=== PATIENT | female | born 1960 ===

== ENCOUNTER 2017-08-30 11:17 | Observation (INO) | payer MEDICARE, MEDICAID ==
--- NOTE | 2017-08-30 13:38 | ED PDOC ---
HPI: Back Time Seen by Provider: 08/30/17 11:51 Chief Complaint (Nursing): Back Pain Chief Complaint (Provider): Right lower back pain x 16 days History Per: Patient History/Exam Limitations: no limitations Onset/Duration Of Symptoms: Days Current Symptoms Are (Timing): Still Present Full Body Front + Back: 1 - Pain 2 - Radiation of pain Quality Of Discomfort: Sharp Additional Complaint(s): 57 yo female with HTN and high cholesterol presents wtih 16 days of right lower back pain, sharp, radiating down the right leg and worse with movement. Pt denies fall or trauma. Pt states that she was seen by Dr. Cerna and given percocet. Pt was also referred to Dr. Hennessy. Pt states she saw Dr. Hennessy and was given Rx for MRI. Pt states she than called Dr. Cerna who was not available and the engineering secretary told her to come to the ER if pain was so severe. Pt states she is no longer taking percocet for pain because she "does not want to become an addict". Pt has Rx for MRI and states she does not want to leave Er without finding out what is wrong with her back. Past Medical History Reviewed: Historical Data, Nursing Documentation, Vital Signs Vital Signs: Last Vital Signs Temp 98.4 F 08/30/17 11:26 Pulse 72 08/30/17 11:26 Resp 20 08/30/17 11:26 BP 139/84 08/30/17 11:26 Pulse Ox 97 08/30/17 11:26 - Medical History PMH: HTN, Hypercholesterolemia - Surgical History Surgical History: No Surg Hx - Family History Family History: States: No Known Family Hx - Home Medications Home Medications: Ambulatory Orders Medication Instructions Recorded Losartan [Cozaar] 100 mg PO DAILY 08/30/17 Metoprolol Succinate XL [Toprol XL] 50 mg PO DAILY 08/30/17 QUEtiapine [SEROquel] 300 mg PO HS 08/30/17 carBAMazepine [Tegretol] 400 mg PO HS 08/30/17 clonazePAM [Klonopin] 1 mg PO HS 06/20/18 - Allergies Allergies/Adverse Reactions: Allergies Allergy/AdvReac Type Severity Reaction Status Date / Time iodine Allergy RASH Verified 08/30/17 11:51 Review of Systems ROS Statement: Except As Marked, All Systems Reviewed And Found Negative Constitutional: Negative for: Fever, Chills Gastrointestinal: Negative for: Nausea, Vomiting, Rectal Pain Genitourinary Female: Negative for: Dysuria, Frequency, Incontinence Musculoskeletal: Positive for: Back Pain Neurological: Negative for: Weakness Physical Exam - Reviewed Nursing Documentation Reviewed: Yes Vital Signs Reviewed: Yes - Physical Exam Appears: Positive for: Well, Non-toxic, No Acute Distress Head Exam: Positive for: ATRAUMATIC, NORMAL INSPECTION, NORMOCEPHALIC Skin: Positive for: Normal Color, Warm, DRY Eye Exam: Positive for: Normal appearance ENT: Positive for: Normal ENT Inspection Neck: Positive for: Normal, Painless ROM Cardiovascular/Chest: Positive for: Regular Rate, Rhythm Respiratory: Positive for: Normal Breath Sounds. Negative for: Accessory Muscle Use, Respiratory Distress Gastrointestinal/Abdominal: Positive for: Normal Exam, Soft. Negative for: Tenderness Back: Positive for: Normal Inspection, Vertebral Tenderness Extremity: Positive for: Normal ROM, Other (Pain with right leg raise ) Neurologic/Psych: Positive for: Alert, Oriented - Laboratory Results Result Diagrams: 08/30/17 19:20 08/30/17 19:20 - ECG O2 Sat by Pulse Oximetry: 97 Pulse Ox Interpretation: Normal Medical Decision Making Medical Decision Making: Discussed with Dr. Cerna who states he was unaware patient was going to the ER. Discussed with Dr. Hennessy who also states he did not know she was going to ER due to pain. Dr. Hennessy recommends MRI and to call him when results are back. Discussed MRI reports with Dr. Hennessy. Would like patient admitted under Dr. Dee Cerna and IV steroids. Basic labs ordered for admission. Discussed admission with Dr. Dee Cerna. Labs normal and urine normal. Disposition - Clinical Impression Clinical Impression: Intractable back pain - Patient ED Disposition Is Patient to be Admitted: Yes - Disposition Disposition Time: 19:10 Condition: STABLE
--- NOTE | 2017-08-30 14:18 | MRI ---
PROCEDURE: MR LUMBAR SPINE WITHOUT CONTRAST HISTORY: severe pain, unable to ambulate COMPARISON: None available. TECHNIQUE: Multiecho multiplanar sequences were performed through the lumbar spine without the use of intravenous contrast. FINDINGS: Normal lumbar lordosis. Vertebral body heights are preserved. Marrow signal unremarkable. Conus medullaris unremarkable at the level of superior L1 Paraspinal soft tissues are unremarkable. Left intra extra renal pelviectasis. T12-L1: No post disc herniation, spinal canal stenosis or neural foraminal narrowing. Anterior displayed wallace with anterior endplate ridging. Posterior bulging annulus impinging on the ventral thecal sac. No conus compression L1-2: No posterior disc herniation, spinal canal stenosis or neural foraminal narrowing. Left central lateral right anterolateral broad-based disc bulging L2-3: Diffuse disc bulge with shallow superimposed 2 to 3 mm central disc protrusion/ disc herniation -this impinges on the thecal sac. No resultant spine canal stenosis or neural foraminal narrowing. L3-4: Diffuse disc bulge. Asymmetrical disc margin left proximal foramen -superimposed broad-based disc herniation possible annular tear fissures here compromising the left lateral recess/left proximal foraminal junction and continuity with the left L4 nerve which appears very slightly more prominent in this left lateral recess No more central stenosis suggested. No more peripheral distal neural foraminal narrowing. L4-5: Posterior disc space narrowing with endplate osteophytosis and diffuse disc bulge. This osteophyte disc complex compromises the right lateral recess and right proximal foramen,. There is some mild encroachment on the central canal/right lateral recess junction. L5-S1: No disc herniation, spinal canal stenosis or neural foraminal narrowing. . Mild facet hypertrophic arthrosis OTHER FINDINGS: None. IMPRESSION: Multilevel prominent disc margins along with endplate ridging -as referenced above. Multilevel disc bulges with superimposed disc herniations as referenced above. The spinal stenosis reasons for it are detailed above on the left-sided L3-4 and on the right sided L4-5. Disc bulges and disc herniations are as detailed above as well
[2017-08-30 19:36] LABS: BASO % 0.7 % (0.0-2.0); EOS # 0.1 K/uL (0.0-0.7); EOS % 1.9 % (0.0-4.0); HEMOGLOBIN 13.7 g/dL (12.0-16.0); LYMPH # 2.1 K/uL (1.0-4.3); LYMPH % 41.9 % (20.0-40.0); MEAN CELL VOLUME 94.3 fl (81.0-99.0); MEAN CORPUSCULAR HEMOGLOBIN 31.4 pg (27.0-31.0); MEAN CORPUSCULAR HGB CONC 33.3 g/dL (33.0-37.0); MEAN PLATELET VOLUME 8.3 fl (7.2-11.7); MONO # 0.5 K/uL (0.0-0.8); MONO % 9.3 % (0.0-10.0); NEUT # 2.3 K/uL (1.8-7.0); NEUT % 46.2 % (50.0-75.0); NRBC % 0.1 % (0.0-0.0); RBC 4.37 Mil/uL (3.80-5.20); RED CELL DISTRIBUTION WIDTH 12.6 % (11.5-14.5)
[2017-08-30 19:44] LABS: SQUAMOUS EPITHIAL < 1 /hpf (0-5); URINE BILIRUBIN NEGATIVE (NEGATIVE); URINE BLOOD NEGATIVE (NEGATIVE); URINE CLARITY SLIGHTY-CLOUDY (Clear); URINE COLOR YELLOW (YELLOW); URINE GLUCOSE (UA) NEG (Normal); URINE LEUKOCYTE ESTERASE NEG Leu/uL (Negative); URINE PROTEIN NEGATIVE (NEGATIVE); URINE UROBILINOGEN 0.2-1.0 mg/dL (0.2-1.0)
[2017-08-30 19:51] LABS: ALB/GLOB RATIO 1.2 (1.0-2.1); ALBUMIN 4.1 g/dL (3.5-5.0); ALT/SGPT 40 U/L (9-52); AST/SGOT 26 U/L (14-36); BLOOD UREA NITROGEN 16 mg/dl (7-17); CALCIUM 8.5 mg/dL (8.4-10.2); GFR AFRICAN-AMERICAN > 60; GFR NON-AFRICAN AMERICAN > 60
[2017-08-30 19:56] LABS: PARTIAL THROMBOPLASTIN TIME 26.4 Seconds (25.6-37.1)
[2017-08-31] MEDS: Metoprolol Succinate 50 mg XL Tab PO SCH (11:30)
--- NOTE | 2017-08-31 13:49 | CP.PCM.HP ---
History of Present Illness - History of Present Illness History of Present Illness: 57 yr old F presents to ED with complaint of intractable right lower back pain x 17 days. Denies any recent trauma, falls or inciting event. PMHx includes hypertension, hypercholesterolemia, Bipolar disorder, depression. Patient reports the pain is 10/10, sharp, radiates down her right leg, is exacerbated by any type of movement, mildly alleviated by rest. She has taken some OTC medication and Percocet PRN and this provided mild relief, but she does not want to take medication daily. Reports 18 yrs ago she suffered a right hip/low back sprain after lifting a heavy suitcase, but hasn't had any issues since then. Denies urinary or fecal incontinence, denies difficulty walking. Patient reports she is scheduled to see neurosurgery but came to the ER because she could not take the pain. PMD: Dr. Cerna PMHx: hypertension, hypercholesterolemia, Bipolar disorder, depression SurgHx: denies FMHx: noncontributory SocHx: denies tobacco, Etoh or drugs Medications: Losartan 100mg PO QD, Metoprolol Succinate 50 mg PO QD, Seroquel 300mg PO QHS, Carbamazepine 400mg PO QHS, Clonopin 1mg PO QHS Allergies: iodine ED course: BP 139/84 mmHg, HR 72 bpm, Resp 20, O2 sat 97% on room air, Temp 98.4 F -CBC, CMP, coags and urinalysis within normal limits -MRI Lumbar Spine: multilevel prominent disc margins along with endplate ridging , multilevel disc bulges with superimposed disc herniations (see full report) -ED treatment: Cyclobenzaprine 10mg PO once, Toradol 30mg IM once, Methylprednisolone 125mg IV once Present on Admission - Present on Admission Any Indicators Present on Admission: No History of DVT/PE: No History of Uncontrolled Diabetes: No Urinary Catheter: No Decubitus Ulcer Present: No History Surgical Site Infection Following: None Review of Systems - Constitutional Constitutional: absent: Chills, Weakness - EENT Eyes: absent: Change in Vision Ears: absent: Disequilibrium Nose/Mouth/Throat: absent: Sore Throat - Cardiovascular Cardiovascular: absent: Chest Pain, Dyspnea - Respiratory Respiratory: absent: Cough, Dyspnea, Hemoptysis - Gastrointestinal Gastrointestinal: absent: Diarrhea, Nausea, Vomiting - Genitourinary Genitourinary: absent: Difficulty Urinating, Dysuria - Musculoskeletal Musculoskeletal: Back Pain (right low back), Radiating Pain into Limb (to right LE). absent: Atrophy, Limited Range of Motion - Neurological Neurological: absent: Confusion, Focal Weakness - Psychiatric Psychiatric: absent: Suicidal Ideation - Endocrine Endocrine: absent: Polydipsia, Polyphagia, Polyuria - Hematologic/Lymphatic Hematologic: absent: Easy Bleeding, Easy Bruising Past Patient History - Past Medical History & Family History Past Medical History?: Yes - Past Social History Smoking Status: Never Smoked - CARDIAC Hx Cardiac Disorders: Yes Hx Hypercholesterolemia: Yes Hx Hypertension: Yes - PULMONARY Hx Respiratory Disorders: No - NEUROLOGICAL Hx Neurological Disorder: No - HEENT Hx HEENT Problems: No - RENAL Hx Chronic Kidney Disease: No - ENDOCRINE/METABOLIC Hx Endocrine Disorders: No - HEMATOLOGICAL/ONCOLOGICAL Hx Blood Disorders: No - INTEGUMENTARY Hx Dermatological Problems: No - MUSCULOSKELETAL/RHEUMATOLOGICAL Hx Musculoskeletal Disorders: No Hx Falls: No - GASTROINTESTINAL Hx Gastrointestinal Disorders: No - GENITOURINARY/GYNECOLOGICAL Hx Genitourinary Disorders: No - PSYCHIATRIC Hx Psychophysiologic Disorder: No Hx Substance Use: No - SURGICAL HISTORY Hx Surgeries: Yes Other/Comment: ectopic - 1997. right breast mass removed. - ANESTHESIA Hx Anesthesia: Yes Hx Anesthesia Reactions: No Meds Allergies/Adverse Reactions: Allergies Allergy/AdvReac Type Severity Reaction Status Date / Time iodine Allergy RASH Verified 08/30/17 11:51 Physical Exam - Constitutional Appears: No Acute Distress - Eye Exam Eye Exam: EOMI, PERRL - ENT Exam ENT Exam: Mucous Membranes Moist - Neck Exam Neck exam: Positive for: Full Rom. Negative for: Lymphadenopathy - Respiratory Exam Respiratory Exam: Clear to Auscultation Bilateral, NORMAL BREATHING PATTERN - Cardiovascular Exam Cardiovascular Exam: REGULAR RHYTHM, +S1, +S2 - GI/Abdominal Exam GI & Abdominal Exam: Normal Bowel Sounds, Soft. absent: Tenderness - Extremities Exam Extremities exam: Positive for: full ROM (strength 5/5 in bilateral upper and lower extremities), pedal pulses present. Negative for: pedal edema, tenderness - Neurological Exam Neurological exam: Alert, CN II-XII Intact (grossly intact), Oriented x3 - Psychiatric Exam Psychiatric exam: Normal Affect, Normal Mood - Skin Skin Exam: Dry, Normal Color, Warm Results - Vital Signs Recent Vital Signs: Last Vital Signs Temp 97.5 F L 08/31/17 08:46 Pulse 81 06/21/18 11:30 Resp 18 08/31/17 08:46 BP 124/78 08/31/17 11:30 Pulse Ox 97 08/31/17 11:27 - Labs Result Diagrams: 08/30/17 19:20 08/30/17 19:20 Labs: Laboratory Results - last 24 hr 08/30/17 08/30/17 08/30/17 19:20 19:20 19:20 WBC 5.0 RBC 4.37 Hgb 13.7 Hct 41.2 MCV 94.3 MCH 31.4 H MCHC 33.3 RDW 12.6 Plt Count 241 MPV 8.3 Neut % (Auto) 46.2 L Lymph % (Auto) 41.9 H [place] % (Auto) 9.3 Eos % (Auto) 1.9 Baso % (Auto) 0.7 Neut # (Auto) 2.3 Lymph # (Auto) 2.1 [place] # (Auto) 0.5 Eos # (Auto) 0.1 Baso # (Auto) 0.0 PT 11.0 INR 1.0 APTT 26.4 Sodium 141 Potassium 3.9 Chloride 106 Carbon Dioxide 27 Anion Gap 12 BUN 16 Creatinine 0.5 L Est GFR ( Amer) > 60 Est GFR (Non-Af Amer) > 60 Random Glucose 72 Calcium 8.5 Total Bilirubin 0.6 AST 26 ALT 40 Alkaline Phosphatase 78 Total Protein 7.4 Albumin 4.1 Globulin 3.4 Albumin/Globulin Ratio 1.2 Urine Color Urine Clarity Urine pH Ur Specific [place] Urine Protein Urine Glucose (UA) Urine Ketones Urine Blood Urine Nitrate Urine Bilirubin Urine Urobilinogen Ur Leukocyte Esterase Urine RBC (Auto) Urine Microscopic WBC Ur Squamous Epith Cells 08/30/17 19:37 WBC RBC Hgb Hct MCV MCH MCHC RDW Plt Count MPV Neut % (Auto) Lymph % (Auto) [place] % (Auto) Eos % (Auto) Baso % (Auto) Neut # (Auto) Lymph # (Auto) [place] # (Auto) Eos # (Auto) Baso # (Auto) PT INR APTT Sodium Potassium Chloride Carbon Dioxide Anion Gap BUN Creatinine Est GFR ( Amer) Est GFR (Non-Af Amer) Random Glucose Calcium Total Bilirubin AST ALT Alkaline Phosphatase Total Protein Albumin Globulin Albumin/Globulin Ratio Urine Color Yellow Urine Clarity Slighty-cloudy Urine pH 6.0 Ur Specific [place] 1.025 Urine Protein Negative Urine Glucose (UA) Neg Urine Ketones Negative Urine Blood Negative Urine Nitrate Negative Urine Bilirubin Negative Urine Urobilinogen 0.2-1.0 Ur Leukocyte Esterase Neg Urine RBC (Auto) 1 Urine Microscopic WBC 2 Ur Squamous Epith Cells < 1 Assessment & Plan - Assessment and Plan (Free Text) Assessment: 57 yr old F admitted for intractable right low back pain with PMHx including hypertension, hypercholesterolemia, Bipolar disorder, depression. Plan: -Admit to med/surg -pain management -heart healthy diet -Neurosurgery consult: Dr. Hennessy will follow recommendations -Physiatry consult: Dr. Celeste, will follow recommendations -Neurology consult: Dr. Sanchez: will follow recommendations -PT/OT - Date & Time Date: 08/31/17 Time: 10:10
--- NOTE | 2017-08-31 17:19 | CP.PCM.PN ---
Subjective - Subjective Subjective: Anesthesiology Note: Pain Consult The patient is Asuncion Waite who initially developed Right sided low back while entering the passenger side of a car,17 days ago.She was able to do household work however the pain got worse and she went to the emergency room for further diagnosis and treatment.MRI of lumbar spine showed diffuse disc bulges at L3 -4, diffuse disc bulge At L4-L5 with posterior disc space narrowing with endplate osteophytosis.Focused examination revealed positive straight leg raising of the right lower extremity. assessment: Possible Right Lumbar Radiculopathy. Continue present management,steroid, Nsaids. Objective - Vital Signs/Intake and Output Vital Signs (last 24 hours): Temp Pulse Resp BP Pulse Ox 97.5 F L 81 18 124/78 97 08/31/17 08:46 08/31/17 11:30 08/31/17 08:46 08/31/17 11:30 08/31/17 11:27 - Medications Medications: Current Medications Carbamazepine (Tegretol) 400 mg PO HS [facility] Last Admin: 08/30/17 23:22 Dose: 400 mg Clonazepam (Klonopin) 1 mg PO HS [facility] Last Admin: 08/30/17 23:22 Dose: 1 mg Gabapentin (Neurontin) 300 mg PO [facility] Ketorolac Tromethamine (Toradol) 30 mg IVP Q6 PRN PRN Reason: Pain, moderate (4-7) Last Admin: 08/31/17 05:44 Dose: 30 mg Losartan Potassium (Cozaar) 100 mg PO DAILY [facility] Last Admin: 08/31/17 08:58 Dose: 100 mg Methylprednisolone (Solu-Medrol) 125 mg IVP Q8@0100,0900,1700 [facility] Last Admin: 08/31/17 16:47 Dose: 125 mg Metoprolol Succinate (Toprol Xl) 50 mg PO DAILY [facility] Last Admin: 08/31/17 11:30 Dose: 50 mg Pantoprazole Sodium (Protonix Inj) 40 mg IVP DAILY [facility] Last Admin: 08/31/17 08:59 Dose: 40 mg Quetiapine Fumarate (Seroquel) 300 mg PO HS [facility] Last Admin: 08/30/17 23:22 Dose: 300 mg Tizanidine HCl (Zanaflex) 4 mg PO Q8 [facility] Last Admin: 08/31/17 16:48 Dose: 4 mg - Labs Labs: 08/30/17 19:20 08/30/17 19:20 PT 11.0 Seconds (9.8-13.1) 08/30/17 19:20 INR 1.0 (0.9-1.2) 08/30/17 19:20 APTT 26.4 Seconds (25.6-37.1) 08/30/17 19:20
--- NOTE | 2017-08-31 17:57 | CP.PCM.CON ---
History of Present Illness - History of Present Illness History of Present Illness: Dr Celeste PMR consultation on Asuncion Waite, born 1960, who has been admitted to [facility] with intractable right lumbar radicular symptoms. The lumbar MRI revealed L3/4 and L4/5 HNP with the former having a left side and the latter a right sided aspect. + SLR decrease sensation and numbness and pain into the foot on the right. + apprehension with moving the right LE as well +BM yesterday. IV corticosteroid has been given along with pain medication and muscle relaxant. She is more comfortable but woozy. Denies saddle anesthesia I agree with the plan of care at this point and will mobilize with therapies Past Patient History - Past Medical History & Family History Past Medical History?: Yes - Past Social History Smoking Status: Never Smoked - CARDIAC Hx Cardiac Disorders: Yes Hx Hypercholesterolemia: Yes Hx Hypertension: Yes - PULMONARY Hx Respiratory Disorders: No - NEUROLOGICAL Hx Neurological Disorder: No - HEENT Hx HEENT Problems: No - RENAL Hx Chronic Kidney Disease: No - ENDOCRINE/METABOLIC Hx Endocrine Disorders: No - HEMATOLOGICAL/ONCOLOGICAL Hx Blood Disorders: No - INTEGUMENTARY Hx Dermatological Problems: No - MUSCULOSKELETAL/RHEUMATOLOGICAL Hx Musculoskeletal Disorders: No Hx Falls: No - GASTROINTESTINAL Hx Gastrointestinal Disorders: No - GENITOURINARY/GYNECOLOGICAL Hx Genitourinary Disorders: No - PSYCHIATRIC Hx Psychophysiologic Disorder: No Hx Substance Use: No - SURGICAL HISTORY Hx Surgeries: Yes Other/Comment: ectopic - 1997. right breast mass removed. - ANESTHESIA Hx Anesthesia: Yes Hx Anesthesia Reactions: No Meds Allergies/Adverse Reactions: Allergies Allergy/AdvReac Type Severity Reaction Status Date / Time iodine Allergy RASH Verified 08/30/17 11:51 - Medications Medications: Current Medications Carbamazepine (Tegretol) 400 mg PO HS [facility] Last Admin: 08/30/17 23:22 Dose: 400 mg Clonazepam (Klonopin) 1 mg PO HS [facility] Last Admin: 08/30/17 23:22 Dose: 1 mg Gabapentin (Neurontin) 300 mg PO HS [facility] Ketorolac Tromethamine (Toradol) 30 mg IVP Q6 PRN PRN Reason: Pain, moderate (4-7) Last Admin: 08/31/17 05:44 Dose: 30 mg Losartan Potassium (Cozaar) 100 mg PO DAILY [facility] Last Admin: 08/31/17 08:58 Dose: 100 mg Methylprednisolone (Solu-Medrol) 125 mg IVP Q8@0100,0900,1700 [facility] Last Admin: 08/31/17 16:47 Dose: 125 mg Metoprolol Succinate (Toprol Xl) 50 mg PO DAILY [facility] Last Admin: 08/31/17 11:30 Dose: 50 mg Pantoprazole Sodium (Protonix Inj) 40 mg IVP DAILY [facility] Last Admin: 08/31/17 08:59 Dose: 40 mg Quetiapine Fumarate (Seroquel) 300 mg PO HS [facility] Last Admin: 08/30/17 23:22 Dose: 300 mg Tizanidine HCl (Zanaflex) 4 mg PO Q8 [facility] Last Admin: 08/31/17 16:48 Dose: 4 mg Results - Vital Signs Recent Vital Signs: Last Vital Signs Temp 97.5 F L 08/31/17 08:46 Pulse 81 08/31/17 11:30 Resp 18 08/31/17 08:46 BP 124/78 08/31/17 11:30 Pulse Ox 97 08/31/17 11:27 - Labs Result Diagrams: 08/30/17 19:20 08/30/17 19:20 Labs: Laboratory Results - last 24 hr 08/30/17 08/30/17 08/30/17 19:20 19:20 19:20 WBC 5.0 RBC 4.37 Hgb 13.7 Hct 41.2 MCV 94.3 MCH 31.4 H MCHC 33.3 RDW 12.6 Plt Count 241 MPV 8.3 Neut % (Auto) 46.2 L Lymph % (Auto) 41.9 H [place] % (Auto) 9.3 Eos % (Auto) 1.9 Baso % (Auto) 0.7 Neut # (Auto) 2.3 Lymph # (Auto) 2.1 [place] # (Auto) 0.5 Eos # (Auto) 0.1 Baso # (Auto) 0.0 PT 11.0 INR 1.0 APTT 26.4 Sodium 141 Potassium 3.9 Chloride 106 Carbon Dioxide 27 Anion Gap 12 BUN 16 Creatinine 0.5 L Est GFR ( Amer) > 60 Est GFR (Non-Af Amer) > 60 Random Glucose 72 Calcium 8.5 Total Bilirubin 0.6 AST 26 ALT 40 Alkaline Phosphatase 78 Total Protein 7.4 Albumin 4.1 Globulin 3.4 Albumin/Globulin Ratio 1.2 Urine Color Urine Clarity Urine pH Ur Specific [place] Urine Protein Urine Glucose (UA) Urine Ketones Urine Blood Urine Nitrate Urine Bilirubin Urine Urobilinogen Ur Leukocyte Esterase Urine RBC (Auto) Urine Microscopic WBC Ur Squamous Epith Cells 08/30/17 19:37 WBC RBC Hgb Hct MCV MCH MCHC RDW Plt Count MPV Neut % (Auto) Lymph % (Auto) [place] % (Auto) Eos % (Auto) Baso % (Auto) Neut # (Auto) Lymph # (Auto) [place] # (Auto) Eos # (Auto) Baso # (Auto) PT INR APTT Sodium Potassium Chloride Carbon Dioxide Anion Gap BUN Creatinine Est GFR ( Amer) Est GFR (Non-Af Amer) Random Glucose Calcium Total Bilirubin AST ALT Alkaline Phosphatase Total Protein Albumin Globulin Albumin/Globulin Ratio Urine Color Yellow Urine Clarity Slighty-cloudy Urine pH 6.0 Ur Specific [place] 1.025 Urine Protein Negative Urine Glucose (UA) Neg Urine Ketones Negative Urine Blood Negative Urine Nitrate Negative Urine Bilirubin Negative Urine Urobilinogen 0.2-1.0 Ur Leukocyte Esterase Neg Urine RBC (Auto) 1 Urine Microscopic WBC 2 Ur Squamous Epith Cells < 1
--- NOTE | 2017-08-31 18:48 | CON ---
DATE: 08/30/2017 NEUROLOGY CONSULTATION CHIEF COMPLAINT: Low back pain. HISTORY OF PRESENT ILLNESS: This is a 57-year-old woman with past medical history of hypertension, hypercholesterolemia, bipolar disorder, depression, on Seroquel, carbamazepine, and Klonopin for anxiety and depression and bipolar disorder, on losartan and metoprolol for high blood pressure, who presents for intractable right lower back pain for the past 2 weeks, radiating down to the right buttocks, down the right leg and to laterally with paresthesias aggravated by prolonged positions and bending. She mentioned that when she moves her legs up, she gets a pull in her lower back. She says that 18 years ago, she suffered low back strain from but has not had any issue since then. No fecal or bowel incontinence. MRI of the lumbosacral spine shows multilevel prominent disk margins along the end-plate bridging, but mostly multilevel disk bulge with superimposed disk herniations, especially at L3-L4 and L4-L5. There is spinal stenosis seen at the left side L3-L4 and right side L4-L5 with impingement of the left L4 nerve root. There is some disk bulge in the L1-L2 as well. Currently, she is on Solu-Medrol 125 mg IV every 8 hours in addition to gabapentin 300 mg p.o. at bedtime and Zanaflex 4 mg p.o. at bedtime. PAST MEDICAL HISTORY: As above. SOCIAL HISTORY: No illicit drug abuse, smoking, or ETOH abuse. MEDICATIONS: Reviewed by nurse per reconciliation sheet. ALLERGIES: TO IODINE. FAMILY HISTORY: Noncontributory. PAST SURGICAL HISTORY: Denies. REVIEW OF SYSTEMS: A 14-point review of system is negative except for the HPI. LABORATORY DATA: Sodium is 141, potassium 3.9, chloride 106, carbon dioxide 27, BUN of 16, creatinine of 0.5, random glucose 72. PHYSICAL EXAMINATION: VITAL SIGNS: Temperature 97.5, pulse rate of 81, blood pressure 124/70, respiratory rate of 18, and oxygen saturation of 97% on room air. GENERAL: The patient is sitting up in bed in no acute distress. HEENT: Head is atraumatic and normocephalic. PERRLA. Extraocular muscles intact. NECK: Supple. No JVD. No adenopathy noted. LUNGS: Clear to auscultation. No adventitious sounds. HEART: S1 and S2. Normal rate and rhythm. No murmur, rubs, or gallops. ABDOMEN: Soft, nontender, nondistended. Bowel sounds present. EXTREMITIES: No clubbing. No cyanosis. Peripheral pulses 2+ felt bilaterally. NEUROLOGIC: The patient is alert and oriented to person, place, month, and year. Speech is fluent without any errors. Cranial nerves II through XII intact. Motor exam: Moves all extremities equally. No atrophy seen. Sensory exam: Light touch, pinprick, proprioception, and vibration intact. DTRs are 2+ throughout. Coordination: [id number] intact. No dysmetria noted. ASSESSMENT AND PLAN: This is a 57-year-old woman with history of depression, anxiety, bipolar, hypertension, hypercholesterolemia, who came in with worsening low back pain radiating down to the right buttocks down into the lateral aspect of the leg with some paresthesia aggravated by prolonged positions and bending, and her low back pain is likely secondary to underlying lumbosacral neuritis, especially at the L3-L4 and L4-L5 multilevel disk herniations, multilevel disk bulges, impinging the L4 nerve root. RECOMMENDATIONS: At this time, we would recommend: 1. Tizanidine 4 mg for back pain and muscle spasms. 2. IV steroids and Solu-Medrol 125 mg IV every 8 for antiinflammatory effect. 3. Gabapentin 300 mg p.o. at bedtime for neuropathic release. 4. Physical therapy and occupational therapy for lumbosacral, especially TENS unit for myofascial pain release and lumbosacral stabilization exercises. 5. Follow up with as an outpatient. She is clinically stable. Thank you for this consult. Jose Sanchez MD
[2017-08-31] MEDS ORDERED: DiphenhydrAMINE 50 mg/ml Inj IVP ONE (23:25)
[2017-08-31 23:47] VITALS: O2SAT 95
--- NOTE | 2017-09-01 08:00 | CP.PCM.PN ---
Subjective - Date & Time of Evaluation Date of Evaluation: 09/01/17 Time of Evaluation: 07:45 - Subjective Subjective: Follow-up to Dr. Stewart's consult. Patient developed pain at home and MRI revealed left L3-4 disc herniation and right L4-5 disc herniation with stenosis. This has been going on for 3 weeks but she's feeling much better today with IV steroids and adjuncts. The pain starts in the right lower back, radiating to the right groin and thigh (posterior + lateral), but not below the knee. The left sided pain is mild and axial. She denies saddle anesthesia or incontinence. She was seen by neurology and rehab yesterday. At this time, she would like to try PT before proceeding with injection. Objective - Vital Signs/Intake and Output Vital Signs (last 24 hours): Temp Pulse Resp BP Pulse Ox 98.3 F 78 18 134/77 95 08/31/17 23:47 08/31/17 23:47 08/31/17 23:47 08/31/17 23:47 08/31/17 23:47 - Medications Medications: Current Medications Carbamazepine (Tegretol) 400 mg PO HS [facility] Last Admin: 08/31/17 22:02 Dose: 400 mg Clonazepam (Klonopin) 1 mg PO HS [facility] Last Admin: 08/31/17 22:01 Dose: 1 mg Ketorolac Tromethamine (Toradol) 30 mg IVP Q6 PRN PRN Reason: Pain, moderate (4-7) Last Admin: 08/31/17 05:44 Dose: 30 mg Loratadine (Claritin) 10 mg PO DAILY [facility] Losartan Potassium (Cozaar) 100 mg PO DAILY [facility] Last Admin: 08/31/17 08:58 Dose: 100 mg Methylprednisolone (Solu-Medrol) 125 mg IVP Q8@0100,0900,1700 [facility] Last Admin: 09/01/17 01:04 Dose: 125 mg Metoprolol Succinate (Toprol Xl) 50 mg PO DAILY [facility] Last Admin: 08/31/17 11:30 Dose: 50 mg Pantoprazole Sodium (Protonix Inj) 40 mg IVP DAILY [facility] Last Admin: 08/31/17 08:59 Dose: 40 mg Quetiapine Fumarate (Seroquel) 300 mg PO [facility] Last Admin: 08/31/17 22:02 Dose: 300 mg Tizanidine HCl (Zanaflex) 4 mg PO Q8 [facility] Last Admin: 09/01/17 01:09 Dose: 4 mg - Labs Labs: 08/30/17 19:20 08/30/17 19:20 PT 11.0 Seconds (9.8-13.1) 08/30/17 19:20 INR 1.0 (0.9-1.2) 08/30/17 19:20 APTT 26.4 Seconds (25.6-37.1) 08/30/17 19:20 - Respiratory Exam Respiratory Exam: NORMAL BREATHING PATTERN - Cardiovascular Exam Cardiovascular Exam: REGULAR RHYTHM - Back Exam Back Exam: paraspinal tenderness, vertebral tenderness Assessment and Plan (1) Intractable back pain Assessment & Plan: 57 yo woman w/ lumbar radiculopathy due to disc herniation. Pain has improved with treatment. Patient prefers conservative therapy for now. - continue current regimen - will follow up with patient in rehab - injection PRN if patient is agreeable Status: Acute
[2017-09-01 08:28] VITALS: BP 101/65; PULSE 77; RESP 20; TEMP 97.7
[2017-09-01] MEDS: Metoprolol Succinate 50 mg XL Tab PO SCH (09:04)
--- NOTE | 2017-09-01 23:42 | CP.PCM.DIS ---
Provider - Provider Date of Admission: 08/30/17 19:26 Attending physician: Dominick Cerna MD Primary care physician: Dr. Cerna Consults: Dr. Ma, Dr. Celeste, Dr. Stewart, Dr. De La Rosa Time Spent in preparation of Discharge (in minutes): 30 Diagnosis - Discharge Diagnosis (1) Intractable back pain Status: Acute Priority: Medium (2) Hypertension Status: Chronic Priority: Low (3) Bipolar 1 disorder, depressed, mild Status: Chronic Priority: Medium (4) Depression Status: Chronic Priority: Medium Hospital Course - Lab Results Lab Results: Micro Results 08/30/17 19:37 Urine,Clean Catch Urine Culture - Final <10,000 CFU/ML. MULTIPLE SPECIES. PROBABLE CONTAMINATION. Most Recent Lab Values WBC 5.0 K/uL (4.8-10.8) 08/30/17 19:20 RBC 4.37 Mil/uL (3.80-5.20) 08/30/17 19:20 Hgb 13.7 g/dL (12.0-16.0) 08/30/17 19:20 Hct 41.2 % (34.0-47.0) 08/30/17 19:20 MCV 94.3 fl (81.0-99.0) 08/30/17 19:20 MCH 31.4 pg (27.0-31.0) H 08/30/17 19:20 MCHC 33.3 g/dL (33.0-37.0) 08/30/17 19:20 RDW 12.6 % (11.5-14.5) 08/30/17 19:20 Plt Count 241 K/uL (130-400) 08/30/17 19:20 MPV 8.3 fl (7.2-11.7) 08/30/17 19:20 Neut % (Auto) 46.2 % (50.0-75.0) L 08/30/17 19:20 Lymph % (Auto) 41.9 % (20.0-40.0) H 08/30/17 19:20 [place] % (Auto) 9.3 % (0.0-10.0) 08/30/17 19:20 Eos % (Auto) 1.9 % (0.0-4.0) 08/30/17 19:20 Baso % (Auto) 0.7 % (0.0-2.0) 08/30/17 19:20 Neut # (Auto) 2.3 K/uL (1.8-7.0) 08/30/17 19:20 Lymph # (Auto) 2.1 K/uL (1.0-4.3) 08/30/17 19:20 [place] # (Auto) 0.5 K/uL (0.0-0.8) 08/30/17 19:20 Eos # (Auto) 0.1 K/uL (0.0-0.7) 08/30/17 19:20 Baso # (Auto) 0.0 K/uL (0.0-0.2) 08/30/17 19:20 PT 11.0 Seconds (9.8-13.1) 08/30/17 19:20 INR 1.0 (0.9-1.2) 08/30/17 19:20 APTT 26.4 Seconds (25.6-37.1) 08/30/17 19:20 Sodium 141 mmol/l (132-148) 08/30/17 19:20 Potassium 3.9 MMOL/L (3.6-5.0) 08/30/17 19:20 Chloride 106 mmol/L (98-107) 08/30/17 19:20 Carbon Dioxide 27 mmol/L (22-30) 08/30/17 19:20 Anion Gap 12 (10-20) 08/30/17 19:20 BUN 16 mg/dl (7-17) 08/30/17 19:20 Creatinine 0.5 mg/dl (0.7-1.2) L 08/30/17 19:20 Est GFR ( Amer) > 60 08/30/17 19:20 Est GFR (Non-Af Amer) > 60 08/30/17 19:20 Random Glucose 72 mg/dL (65-105) 08/30/17 19:20 Calcium 8.5 mg/dL (8.4-10.2) 08/30/17 19:20 Total Bilirubin 0.6 mg/dl (0.2-1.3) 08/30/17 19:20 AST 26 U/L (14-36) 08/30/17 19:20 ALT 40 U/L (9-52) 08/30/17 19:20 Alkaline Phosphatase 78 U/L (38-126) 08/30/17 19:20 Total Protein 7.4 G/DL (6.3-8.2) 08/30/17 19:20 Albumin 4.1 g/dL (3.5-5.0) 08/30/17 19:20 Globulin 3.4 gm/dL (2.2-3.9) 08/30/17 19:20 Albumin/Globulin Ratio 1.2 (1.0-2.1) 08/30/17 19:20 Urine Color Yellow (YELLOW) 08/30/17 19:37 Urine Clarity Slighty-cloudy (Clear) 08/30/17 19:37 Urine pH 6.0 (5.0-8.0) 08/30/17 19:37 Ur Specific [place] 1.025 (1.003-1.030) 08/30/17 19:37 Urine Protein Negative mg/dL (NEGATIVE) 08/30/17 19:37 Urine Glucose (UA) Neg mg/dL (Normal) 08/30/17 19:37 Urine Ketones Negative mg/dL (NEGATIVE) 08/30/17 19:37 Urine Blood Negative (NEGATIVE) 08/30/17 19:37 Urine Nitrate Negative (NEGATIVE) 08/30/17 19:37 Urine Bilirubin Negative (NEGATIVE) 08/30/17 19:37 Urine Urobilinogen 0.2-1.0 mg/dL (0.2-1.0) 08/30/17 19:37 Ur Leukocyte Esterase Neg Natalia/uL (Negative) 08/30/17 19:37 Urine RBC (Auto) 1 /hpf (0-3) 08/30/17 19:37 Urine Microscopic WBC 2 /hpf (0-5) 08/30/17 19:37 Ur Squamous Epith Cells < 1 /hpf (0-5) 08/30/17 19:37 - Hospital Course Hospital Course: 57 yr old F admitted for intractable right low back pain with PMHx including hypertension, hypercholesterolemia, Bipolar disorder, depression. Patient had MRI Lumbar Spine which showed multilevel prominent disc margins along with endplate ridging, multilevel disc bulges with superimposed disc herniations ( see full report). Patients back pain improved mildly with IV steroids, PO muscle relaxant, anti-inflammatory medication and PT. She had an allergic reaction to gabapentin (rash and itchiness) during this admission. Patient was evaluated by Neurosurgery, neurology, physiatry and pain management. Patient was discharged stable with instructions to take tapered steroids as prescribed, follow up with PMD in 1 week, also with neurosurgery, neurology and continue PT. - Date & Time of H&P Date of H&P: 08/31/17 Time of H&P: 13:27 Discharge Exam - Head Exam Head Exam: ATRAUMATIC, NORMAL INSPECTION, NORMOCEPHALIC - Eye Exam Eye Exam: Normal appearance - ENT Exam ENT Exam: Mucous Membranes Moist - Respiratory Exam Respiratory Exam: NORMAL BREATHING PATTERN - Cardiovascular Exam Cardiovascular Exam: REGULAR RHYTHM - GI/Abdominal Exam GI & Abdominal Exam: Normal Bowel Sounds, Soft - Extremities Exam Extremities exam: full ROM - Neurological Exam Neurological exam: Alert, Oriented x3 - Psychiatric Exam Psychiatric exam: Normal Affect, Normal Mood - Skin Skin Exam: Dry, Warm Discharge Plan - Discharge Medications Prescriptions: Methylprednisolone [Medrol Dose Pack (21 tabs)] 4 mg PO DAILY #21 mg Pantoprazole Sodium [Protonix] 40 mg PO DAILY #30 tablet. - Follow Up Plan Condition: STABLE Disposition: HOME/ ROUTINE Instructions: Low Back Pain (DC), Herniated Disc (DC), Back Pain (GEN) Additional Instructions: follow up with primary MD and dr ma 1 week Referrals: Joshua Ma MD [Staff Provider] - Delia De La Rosa MD [Staff Provider] -
== END 2017-09-01 13:40 | disposition home or self-care (01) ==
LOC: H.ER 11:17 → H.ERHOLD 19:26 → H.MEDSURG1 22:28
PROVIDERS: ADMIT Family Medicine; ATTEND Family Medicine
DX: M48.061 Spinal stenosis, lumbar region without neurogenic claudication (principal); M51.26 Other intervertebral disc displacement, lumbar region; T42.6X5A Adverse effect of other antiepileptic and sedative-hypnotic drugs, initial encounter; Z79.899 Other long term (current) drug therapy; M54.17 Radiculopathy, lumbosacral region; R21 Rash and other nonspecific skin eruption; R42 Dizziness and giddiness; E78.00 Pure hypercholesterolemia, unspecified; F31.31 Bipolar disorder, current episode depressed, mild; F41.9 Anxiety disorder, unspecified; I10 Essential (primary) hypertension
CPT/HCPCS: 72148; 80053; 81003; 85025; 85610; 85730; 87086; 96372; 96374; 96375; 96376; 97161; 99285; C9113; G0378; G8978; G8979; J1200; J1885; J2930